=== PATIENT | female | born 2000 | race Caucasian/White ===

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

== ENCOUNTER 2023-02-23 21:27 | Emergency (ER) | payer BC, OTHER ==
[2023-02-23 21:40] VITALS: BP 121/86; PULSE 96; RESP 18; TEMP 98; BMI 30.2
== END 2023-02-23 22:58 | disposition home or self-care (01) ==
LOC: JER 21:27
DX: R21 Rash and other nonspecific skin eruption (principal); L29.9 Pruritus, unspecified; R50.9 Fever, unspecified; L50.9 Urticaria, unspecified
CPT/HCPCS: 99282-25